=== PATIENT | male | born 1960 | race Hispanic/Latino ===

== ENCOUNTER → 2018-05-01 | Outpatient (CLI) | payer BC ==
--- NOTE | 2018-05-01 11:50 | Diagnostic Imaging Report ---
EXAMINATION: PA and lateral views of the chest. COMPARISON: None CLINICAL HISTORY: Hemoptysis DISCUSSION: Lines/tubes: None. Lungs: Local history chest radiograph with lung base atelectasis. Pleura: No pleural effusion or pneumothorax. Heart and mediastinum: The cardiomediastinal silhouette is normal. Bones and soft tissues: No acute bony abnormalities. Age-indeterminate compression fracture approximately T12. IMPRESSION: Low inspiratory chest radiograph with basilar atelectasis. Otherwise, unremarkable. Signed by: Dr. Cole Santana M.D. on 05/01/2018 11:46 AM
== END ==
LOC: RAD 11:12
PROVIDERS: ATTEND Family Medicine
DX: R04.2 Hemoptysis (principal)
CPT/HCPCS: 71046

== ENCOUNTER → 2021-09-25 | Outpatient (CLI) | payer BC | LOC: DX 08:03 | PROVIDERS: ATTEND Family Medicine | DX: K21.9 Gastro-esophageal reflux disease without esophagitis (principal) | CPT/HCPCS: 74246 ==